=== PATIENT | female | born 1980 | race Two or more races ===

== ENCOUNTER 2024-04-13 10:48 | Outpatient (CLI) | payer OTHER | END 2024-04-13 10:51 | disposition home or self-care (01) | LOC: SONOGRAMA 10:48 | PROVIDERS: ATTEND Pathology Anatomic Pathology & Clinical Pathology | DX: C73 Malignant neoplasm of thyroid gland (principal); E06.3 Autoimmune thyroiditis; E04.1 Nontoxic single thyroid nodule ==